=== PATIENT | male | born 1980 | race Two or more races ===

== ENCOUNTER 2025-09-06 11:40 | Day surgery (SDC) | payer MEDICAID, SELFPAY ==
[2025-09-05 13:36] VITALS: BMI 38.7
[2025-09-06] VITALS (13 sets, daily range): BP systolic 102–134; BP diastolic 70–98; PULSE 60–74; RESP 13–23; TEMP 36.2–37.2; O2SAT 91–98; BMI 39.3
[2025-09-06] MEDS: RINGERS LACTATED 500 ML 500 ML 20 ML IV (13:21)
[2025-09-06] MEDS: MIDAZOLAM INJ 1 MG/ML VIAL 2 ML (ASD USE ONLY) 2 MG IVP (13:30)
[2025-09-06] MEDS: fentaNYL CIT INJ 50 mCg/ML AMP 2ML (ASD USE ONLY) IVP (13:30)
== END 2025-09-06 14:41 | disposition home or self-care (01) ==
PROVIDERS: PCP Family Medicine; Referring Provider Surgery; Visit Provider Surgery
PROC: 0DBE8ZX Excision of Large Intestine, Via Natural or Artificial Opening Endoscopic, Diagnostic (ICD-10-PCS; CPT 45380; principal; 2025-09-06 13:00)
DX: Z12.11 Encounter for screening for malignant neoplasm of colon (principal); D12.4 Benign neoplasm of descending colon; E66.01 Morbid (severe) obesity due to excess calories; Z68.39 Body mass index [BMI] 39.0-39.9, adult
CPT/HCPCS: 45385; A4649; J2250; J3010; J7120